=== PATIENT | female | born 1975 | race Caucasian/White ===

== ENCOUNTER 2020-01-16 12:27 | Emergency (ER) | payer OTHER ==
[~2020-01-16 12:27] MED LIST: Iopamidol-370 76% 500 ML 1 ML ONE
[2020-01-16] MEDS ORDERED: Clindamycin/D5W 600 mg/50 ml Premix Bag ONE (13:20)
[2020-01-16] MEDS ORDERED: Fentanyl 100 MCG/2 ML VIAL ONE (13:20)
[2020-01-16] MEDS ORDERED: Dexamethasone 10 MG/ML VIAL ONE (13:20)
[2020-01-16] MEDS ORDERED: Ondansetron PF 4 MG/2 ML Vial ONE (13:20)
[2020-01-16 13:24] LABS: #Eosinphils 0.1 thou/uL (0.0-0.7); #Lymphocytes 1.2 thou/uL (1.20-3.40); #Monocytes 0.7 thou/uL (0.11-0.59); #Neutrophils 3.3 thou/uL (1.40-6.50); %Basophils 0.7 % (0.0-1.0); %Eosinophils 1.7 % (0.0-10.0); %Lymphocytes 21.8 % (21.0-51.0); %Monocytes 13.4 % (0.0-10.0); %Neutrophils 62.4 % (42.0-75.0); Mean Corpuscular HGB CONC 34.4 g/dL (32.0-36.0); Mean Corpuscular Hemoglobin 31.4 pg (27.0-31.0); Mean Corpuscular Volume 91.1 fL (78.0-98.0); Mean Platelet Volume 7.8 fL (7.4-10.4); Platelet Count 170 thou/uL (130-400); RBC Distribution Width 11.4 % (11.5-14.5); White Blood Cell (WBC) Count 5.3 thou/uL (4.8-10.8)
[2020-01-16 13:43] LABS: ALT (SGPT) 19 U/L (8-55); AST (SGOT) 13 U/L (5-34); Albumin 3.4 g/dL (3.5-5.0); Alkaline Phosphatase 91 U/L (40-110); Anion Gap 13 mmol/L (10-20); BUN (Urea Nitrogen) 11 mg/dL (7.0-18.7); Bilirubin, Total 0.2 mg/dL (0.2-1.2); Calc. Creatinine Clearance 0 mL/min (70-130); Carbon Dioxide 22 mmol/L (22-29); Chloride 107 mmol/L (98-107); Estimated GFR-MDRD 70; Globulin 4.1 g/dL (2.4-3.5); Glucose 96 mg/dL (70-105); Potassium 3.5 mmol/L (3.5-5.1); Protein, Total 7.5 g/dL (6.0-8.3); Sodium 138 mmol/L (136-145)
--- NOTE | 2020-01-16 14:32 | CT ---
CT OF FACIAL BONES PERFORMED WITH INTRAVENOUS CONTRAST ENHANCEMENT: 01/16/20 HISTORY: Left sided facial swelling. The visualized brain parenchyma is unremarkable. There is mucosal change within the maxillary sinuses, more prominent on the left. No air fluid levels . Parapharyngeal spaces are clear. Nonspecific bilaterally symmetric jugular chain lymph nodes are pres ent. There is soft tissue swelling in the left side of the face. There is underlying dental disease in the maxillary region. I do not see any abscess formation. IMPRESSION: Soft tissue swelling without signs of any definitive abscess collection. Changes are probably related to underlying dental disease. POS: [facility]
== END 2020-01-16 14:39 | disposition home or self-care (01) ==
LOC: ERS 12:27
DX: K02.9 Dental caries, unspecified (principal); K08.9 Disorder of teeth and supporting structures, unspecified; L03.211 Cellulitis of face; D64.9 Anemia, unspecified; F31.9 Bipolar disorder, unspecified; F41.9 Anxiety disorder, unspecified; F17.290 Nicotine dependence, other tobacco product, uncomplicated
CPT/HCPCS: 70487; 80053; 85025; 96365; 96375; J1100; J2405; J3010; J3490; Q9967

== ENCOUNTER 2020-01-26 05:35 | Emergency (ER) | payer OTHER ==
[2020-01-26] MEDS ORDERED: Ketorolac Tromethamine 30 MG/ML VIAL ONE (06:05)
[2020-01-26] MEDS ORDERED: Promethazine HCl 25 MG/ML VIAL ONE (06:05)
--- NOTE | 2020-01-26 08:18 | CT ---
CT BRAIN NONCONTRAST: DATE: 01/26/2020 HISTORY: 44-year-old female with headache FINDINGS: There is no evidence of acute intra-axial or extra-axial hemorrhage. There is no midline shift or any other mass effect. There is no extra-axial fluid collection. The ventricles are normal in size and configuration. The tympanomastoid cavities, and the upper portions of the paranasal sinuses included in these images, are grossly clear. Calvarium is intact. IMPRESSION: No acute intracranial findings.
[2020-01-26] MEDS ORDERED: Fentanyl 100 MCG/2 ML VIAL ONE (08:26)
[2020-01-26] MEDS ORDERED: Dexamethasone 10 MG/ML VIAL ONE (08:27)
[2020-01-26] MEDS ORDERED: diphenhydrAMINE 50 MG/ML VIAL ONE (08:27)
[2020-01-26] MEDS ORDERED: Metoclopramide 10 MG/10 ML UDCUP ONE (08:27)
[2020-01-26] MEDS ORDERED: Metoclopramide HCl 10 MG/2 ML VIAL ONE (08:28)
== END 2020-01-26 10:36 | disposition home or self-care (01) ==
LOC: ERS 05:35
DX: G43.909 Migraine, unspecified, not intractable, without status migrainosus (principal); D64.9 Anemia, unspecified; F41.9 Anxiety disorder, unspecified; F31.9 Bipolar disorder, unspecified; F17.200 Nicotine dependence, unspecified, uncomplicated; Z79.899 Other long term (current) drug therapy
CPT/HCPCS: 70450; 96365; 96366; 96375; J1100; J1200; J1885; J2550; J2765; J3010